=== PATIENT | male | born 1955 | race Two or more races ===

== ENCOUNTER → 2018-09-16 | Emergency (ER) | payer OTHER | END | disposition left against medical advice (07) | LOC: ER 12:09 | DX: Z76.0 Encounter for issue of repeat prescription (principal); Z53.21 Procedure and treatment not carried out due to patient leaving prior to being seen by health care provider ==

== ENCOUNTER 2021-07-10 15:00 | Emergency (ER) | payer BC, OTHER ==
[~2021-07-10] VITALS: Ht 170.2 cm; Wt 97.5 kg
[2021-07-10] MEDS ORDERED: TETRACAINE HCL 0.5% OPTH(EYE) SOLN 4ML EACHEYE ONE (15:30)
[2021-07-10] MEDS ORDERED: FLUORESCEIN SOD OPTH TEST STRIP OP ONE (15:30)
[2021-07-10 15:35] VITALS: BP 141/82
== END 2021-07-10 16:13 | disposition home or self-care (01) ==
LOC: ER 15:00
DX: T15.02XA Foreign body in cornea, left eye, initial encounter (principal); E78.5 Hyperlipidemia, unspecified; X58.XXXA Exposure to other specified factors, initial encounter; Y93.89 Activity, other specified; Y92.89 Other specified places as the place of occurrence of the external cause; Y99.8 Other external cause status
CPT/HCPCS: 65222

== ENCOUNTER 2023-04-22 14:04 | Emergency (ER) | payer BC, MEDICARE ==
[~2023-04-22] VITALS: Ht 170.2 cm; Wt 113.6 kg
[2023-04-22 14:30] VITALS: PULSE 97; RESP 15; O2SAT 94
[2023-04-22] MEDS ORDERED: SODIUM CHLORIDE 0.9% 1,000 ML IV ONE (14:30)
[2023-04-22 14:50] LABS: Basophils # (auto) 0.1 10 ^3/uL (0-0.2); Basophils % (auto) 0.7 % (0.0-2.0); Eosinophils # (auto) 0.2 10 ^3/uL (0-0.8); Eosinophils % (auto) 1.8 % (0.0-7.0); Hematocrit 44.3 % (41.0-53.0); Lymphocytes # (auto) 2.7 10 ^3/uL (0.4-5.4); Lymphocytes % (auto) 28.5 % (10.0-50.0); Mean Corpuscular Hgb Conc. 33.9 g/dL (32.0-36.0); Mean Corpuscular Volume 91.6 fL (80.0-100.0); Monocytes # (auto) 0.6 10 ^3/uL (0-1.3); Monocytes % (auto) 6.5 % (0.0-12.0); Neutrophils % (auto) 62.5 % (37.0-80.0); Red Blood Cells 4.83 10^6/uL (4.5-5.90); Red Cell Distribution Width 13.4 % (11.8-14.3); White Blood Cell 9.6 10^3/uL (4.4-10.8)
[2023-04-22 15:18] LABS: Alanine Aminotransferase 65 U/L (7-40); Alkaline Phosphatase 71 U/L (46-116); Anion Gap 6 (5-15); Aspartate Aminotransferase 41 U/L (13-40); BUN/Creatinine Ratio 10.9 (10.0-20.0); Blood Urea Nitrogen 15 mg/dL (9-23); Calcium 9.6 mg/dL (8.7-10.4); Carbon Dioxide 27 mmol/L (20-30); Chloride 104 mmol/L (98-107); Glucose 126 mg/dL (74-106); Magnesium 2.1 mg/dL (1.6-2.6); Potassium 4.1 mmol/L (3.5-5.1); Sodium 137 mmol/L (136-145)
[2023-04-22 15:19] LABS: Bilirubin, Total 0.7 mg/dL (0.2-1.0); Total Protein 7.4 g/dL (5.7-8.2)
[2023-04-22 15:20] LABS: Albumin 4.5 g/dL (3.2-4.8)
[2023-04-22 18:00] VITALS: BP 131/70; PULSE 69; RESP 15; O2SAT 94
== END 2023-04-22 18:17 | disposition home or self-care (01) ==
LOC: ER 14:04 → EDBD 14:04 → ER 18:17
DX: R42 Dizziness and giddiness (principal); R78.5 Finding of other psychotropic drug in blood; Z79.899 Other long term (current) drug therapy
CPT/HCPCS: 36415; 71045; 80053; 82550; 83605; 83735; 84484; 85025; 93005; 96360; 99285; J7030